=== PATIENT | male | born 1965 | race American Indian/Alaskan Native ===

== ENCOUNTER 2018-03-25 19:37 | Emergency (ER) | payer MEDICAID ==
[2018-03-25 20:14] LABS: Basophils % (Auto) 0.9 % (0.0-1.8); Eosinophils # (Auto) 0.1 K/mm3 (0.0-0.4); Hematocrit 38.1 % (35.5-45.6); Hemoglobin 13.5 gm/dl (11.8-15.2); Lymphocytes # (Auto) 2.7 K/mm3 (1.2-5.4); Lymphocytes % (Auto) 52.5 % (13.4-35.0); Mean Corpuscular HGB Conc 35 % (32-34); Mean Corpuscular Hemoglobin 32 pg (28-32); Mean Corpuscular Volume 91 fl (84-94); Monocytes # (Auto) 0.3 K/mm3 (0.0-0.8); Monocytes % (Auto) 5.7 % (0.0-7.3); Platelet Count 249 K/mm3 (140-440); Red Blood Count 4.19 M/mm3 (3.65-5.03); Red Cell Distribution Width 14.4 % (13.2-15.2)
[2018-03-25 20:37] LABS: Albumin 4.4 g/dL (3.9-5); Calcium 10.2 mg/dL (8.4-10.2)
--- NOTE | 2018-03-25 20:42 | Emergency Department Report ---
HPI - General Chief Complaint: Abdominal Pain Time Seen by Provider: 03/25/18 20:15 - HPI HPI: 53-year-old male presents to the emergency department with complaint of some abdominal pain and dizziness. Patient says he has a history of stomach ulcers. Earlier today he started having some right upper quadrant abdominal pain. He denies any nausea, vomiting, fever. Prior to this, patient has had some exacerbation of a 2 week history of some generalized dizziness and lightheadedness. It seems to worsen when he is standing up. He denies any headache, slurred speech, vision change, syncopal episodes, chest pain. He is a former tobacco smoker and occasionally will smoke marijuana. He also has a past history of asthma. No recent travel or sick contacts at home. His primary care physician is Dr. Debbie Manzanares. He did not take anything for her symptoms prior to presentation. ED Past Medical Hx - Past Medical History Previous Medical History?: Yes Hx Asthma: Yes - Social History Smoking Status: Current Some Day Smoker Substance Use Type: Marijuana ED Review of Systems ROS: Stated complaint: ABD PAIN Other details as noted in HPI Comment: All other systems reviewed and negative Constitutional: denies: chills, fever Eyes: denies: eye pain, eye discharge, vision change ENT: denies: ear pain, throat pain Respiratory: denies: cough, shortness of breath, wheezing Cardiovascular: denies: chest pain, palpitations Gastrointestinal: abdominal pain. denies: vomiting Genitourinary: denies: urgency, dysuria Musculoskeletal: denies: back pain, joint swelling, arthralgia Skin: denies: rash, lesions Neurological: other (dizziness, lightheadedness). denies: headache Physical Exam - Physical Exam Vital Signs: Vital Signs 03/25/18 19:45 Temperature 98.9 F Pulse Rate 81 Blood Pressure 130/79 O2 Sat by Pulse 99 Oximetry Physical Exam: GENERAL: The patient is well-developed well-nourished. HENT: Normocephalic. Atraumatic. Patient has moist mucous membranes. EYES: Extraocular motions are intact. Pupils equal reactive to light bilaterally. Fatigable horizontal nystagmus. NECK: Supple. Trachea is midline. CHEST/LUNGS: Clear to auscultation. There is no respiratory distress noted. HEART/CARDIOVASCULAR: Regular. There is no tachycardia. There is no murmur. ABDOMEN: Abdomen is soft, nontender. Patient has normal bowel sounds. There is no abdominal distention. SKIN: Skin is warm and dry. NEURO: The patient is awake, alert, and oriented. The patient is cooperative. The patient has no focal neurologic deficits. The patient has normal speech. Cranial nerves II through XII grossly intact. No dysmetria. No pronator drift. No facial asymmetry. MUSCULOSKELETAL: There is no tenderness or deformity. There is no limitation range of motion. There is no evidence of acute injury. ED Course Vital Signs 03/25/18 19:45 Temperature 98.9 F Pulse Rate 81 Blood Pressure 130/79 O2 Sat by Pulse 99 Oximetry ED Medical Decision Making - Lab Data Result diagrams: 03/25/18 20:06 03/25/18 20:06 - EKG Data -: EKG Interpreted by [facility] EKG shows normal: sinus rhythm, axis, intervals, QRS complexes, ST-T waves ( early repolarization) Rate: bradycardia (58 bpm) - EKG Data When compared to previous EKG there are: previous EKG unavailable Interpretation: other (mild sinus bradycardia, early repolarization, no ST elevation NM) - Radiology Data Radiology results: report reviewed PROCEDURE: US ABDOMEN LIMITED TECHNIQUE: Real-time sonography in multiple planes of the gallbladder fossa and CBD with imaging of the adjacent liver, pancreas, and right kidney was performed with image documentation. CPT 52583 HISTORY: RUQ abd pain COMPARISON: No prior studies are available for comparison. FINDINGS: Liver: Normal size and echotexture with no evidence of cystic or solid mass lesion. Gallbladder: Fluid filled. No gallstones, wall thickening, pericholecystic fluid, or sonographic Reich's sign . Intrahepatic bile ducts: Normal . Extrahepatic bile ducts: Normal . Pancreas: Normal as visualized with suboptimal depiction of the pancreatic tail. Right kidney: Normal echotexture. No focal renal mass, calculus, or hydronephrosis. Other: No free fluid. IMPRESSION: There is no cholelithiasis, cholecystitis or biliary ductal dilatation. Transcribed By: CO Dictated By: HAIDER CANDELARIO MD Electronically Authenticated By: HAIDER CANDELARIO MD Signed Date/Time: 03/25/18 5631 PROCEDURE: CT HEAD/BRAIN WO CON TECHNIQUE: Computerized tomography of the head was performed without contrast material. HISTORY: Dizzy, weakness COMPARISON: No prior studies are available for comparison. FINDINGS: Skull and scalp: Normal. Paranasal sinuses: Normal. Ventricles and subarachnoid spaces: Normal. 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 There is no hemorrhage, edema, mass, mass effect or midline shift.. Cerebellum and brainstem: No evidence of hemorrhage, acute infarction or mass. Vasculature: Normal. Comments: None. 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 There is no hemorrhage, edema, mass, mass effect or midline shift.. Transcribed By: CO Dictated By: HAIDER CANDELARIO MD Electronically Authenticated By: HAIDER CANDELARIO MD Signed Date/Time: 03/25/182221 - Medical Decision Making Patient presented with some dizziness and lightheadedness, as well as some upper abdominal discomfort. Abdomen does not appear to be rigid or toxic on examination. Heart and lung sounds are normal auscultation. Patient does not have any focal, motor or sensory deficits and his cranial nerves are intact. CT of the head shows a focal area of encephalomalacia suggesting old infarct or injury but no acute shift, mass, ischemia, bleed or any other acute process. Abdominal ultrasound does not show any signs of cholecystitis, cholelithiasis or any other acute process in the right upper quadrant of the abdomen. Labs are unremarkable. EKG does not show any signs of ST elevation NM or dysrhythmia. Vital signs stable throughout his ED course. Prior to discharge, the patient was ambulatory around the emergency department and appeared stable while doing so. Patient says that he is feeling improved and asking for discharge home. He has been given a referral for gastroenterology to follow up regarding his alleged history of gastric ulcers and his abdominal discomfort and he has been instructed to follow-up with his primary care physician. He will return to the emergency Department with any worsening of his symptoms or any acute distress. - Differential Diagnosis dysrhythmia, TIA, cholecystitis, cholelithiasis, pancreatitis Critical Care Time: No Critical care attestation.: If time is entered above; I have spent that time in minutes in the direct care of this critically ill patient, excluding procedure time. ED Disposition Clinical Impression: Dizziness, Lightheaded Abdominal pain Qualifiers: Abdominal location: upper abdomen, unspecified Qualified Code(s): R10.10 - Upper abdominal pain, unspecified Disposition: DC- TO HOME OR SELFCARE Is pt being admited?: No Condition: Stable Instructions: Abdominal Pain (ED), Lightheadedness (ED), Dizziness (ED) Additional Instructions: Please follow-up with your primary care physician in the next few days. Return to the emergency Department with any worsening of your symptoms or any acute distress. I have given you a referral for a local advertising sales consultant, Dr. Monzon , to follow up regarding your abdominal pains. Referrals: PRIMARY MD MERLY [Primary Care Provider] - 3-5 Days ZOILA MONZON MD [Staff Physician] - 3-5 Days Time of Disposition: 23:41
[2018-03-25 21:20] LABS: Lipase 17 units/L (13-60)
[2018-03-25 21:29] LABS: Bilirubin,Urine NEG (Negative); Blood,Urine NEG (Negative); Color,Urine Yellow (Yellow); Mucus,Urine FEW /HPF; Urobilinogen,Urine < 2.0 mg/dL (<2.0); WBC,Urine < 1.0 /HPF (0.0-6.0)
--- NOTE | 2018-03-25 22:24 | Cat Scan Report ---
FINAL REPORT PROCEDURE: CT HEAD/BRAIN WO CON TECHNIQUE: Computerized tomography of the head was performed without contrast material. HISTORY: Dizzy, weakness COMPARISON: No prior studies are available for comparison. FINDINGS: Skull and scalp: Normal. Paranasal sinuses: Normal. Ventricles and subarachnoid spaces: Normal. 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 There is no hemorrhage, edema, mass, mass effect or midline shift.. Cerebellum and brainstem: No evidence of hemorrhage, acute infarction or mass. Vasculature: Normal. Comments: None. 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 There is no hemorrhage, edema, mass, mass effect or midline shift..
--- NOTE | 2018-03-25 23:06 | Ultrasound Report ---
FINAL REPORT PROCEDURE: US ABDOMEN LIMITED TECHNIQUE: Real-time sonography in multiple planes of the gallbladder fossa and CBD with imaging of the adjacent liver, pancreas, and right kidney was performed with image documentation. CPT 12527 HISTORY: RUQ abd pain COMPARISON: No prior studies are available for comparison. FINDINGS: Liver: Normal size and echotexture with no evidence of cystic or solid mass lesion. Gallbladder: Fluid filled. No gallstones, wall thickening, pericholecystic fluid, or sonographic Reich's sign . Intrahepatic bile ducts: Normal . Extrahepatic bile ducts: Normal . Pancreas: Normal as visualized with suboptimal depiction of the pancreatic tail. Right kidney: Normal echotexture. No focal renal mass, calculus, or hydronephrosis. Other: No free fluid. IMPRESSION: There is no cholelithiasis, cholecystitis or biliary ductal dilatation.
[2018-03-25 23:42] VITALS: BP 116/75
== END 2018-03-25 23:58 | disposition home or self-care (01) ==
LOC: ED 19:37
DX: R10.11 Right upper quadrant pain (principal); R42 Dizziness and giddiness; F17.200 Nicotine dependence, unspecified, uncomplicated; F12.10 Cannabis abuse, uncomplicated; J45.909 Unspecified asthma, uncomplicated; Z88.6 Allergy status to analgesic agent
CPT/HCPCS: 36415; 70450; 76705; 80053; 81001; 83690; 84443; 84484; 85025; 93005; 93010